=== PATIENT | female | born 1965 | race Hispanic/Latino ===

== ENCOUNTER 2022-10-04 14:21 | Observation (INO) | payer SELFPAY ==
[~2022-10-04] VITALS: Ht 152.4 cm; Wt 78.6 kg
[2022-10-04] MEDS ORDERED: NS 1,000 ML IV ONE (16:00)
[2022-10-04] MEDS ORDERED: methylPREDNISolone 125MG 2ML VIAL IV ONE (16:00)
[2022-10-04] MEDS ORDERED: IPRATROPIUM 0.5MG/ALBUTEROL 2.5MG INH SOL UD 3ML (DUONEB) NEB ONE (16:00)
[2022-10-04 16:41] LABS: BASO % 0.3 % (0.0-1.0); EOS % 0.1 % (0.0-3.0); HEMATOCRIT 35.1 % (36.0-47.0); HEMOGLOBIN 11.3 g/dl (12.0-15.5); LYMPH # 1.9 10^3/uL (1.5-5.0); LYMPH % 25.3 % (24.0-44.0); MEAN CORPUSCULAR HEMOGLOBIN 25.1 pg (27.0-33.0); MEAN CORPUSCULAR HGB CONC 32.2 g/dl (32.0-36.5); MONO # 0.9 10^3/uL (0.0-0.8); MONO % 11.8 % (2.0-8.0); NEUTROPHILS # 4.7 10^3/uL (1.5-8.5); NEUTROPHILS % 61.8 % (36.0-66.0); PLATELET COUNT, AUTOMATED 249 10^3/uL (150-450); WHITE BLOOD COUNT 7.5 10^3/uL (4.0-10.0)
[2022-10-04] MEDS ORDERED: POTASSIUM CHLORIDE 10MEQ SR TABLET PO ONE (16:45)
[2022-10-04] MEDS ORDERED: AZITHROMYCIN 250MG TABLET PO ONE (16:55)
[2022-10-04] MEDS ORDERED: cefTRIAXone SOD 1 GM in D5W MINI-BAG PLUS 50 ML IV ONE (16:55)
[2022-10-04 17:22] LABS: ALBUMIN 3.2 G/DL (3.2-5.2); BILIRUBIN,DIRECT 0.2 MG/DL (<0.4); BILIRUBIN,TOTAL 0.6 MG/DL (0.3-1.2); TOTAL PROTEIN 7.3 G/DL (5.7-8.2)
[2022-10-04] MEDS ORDERED: ALBUTEROL SULFATE 2.5 MG/0.5 ML INH NEB SOLN NEB ONE (18:55)
[2022-10-04] MEDS ORDERED: BENZONATATE 100MG CAPSULE PO ONE (18:55)
[2022-10-04 20:12] LABS: RSV AMPLIFICATION NEGATIVE (NEGATIVE)
[2022-10-04] MEDS ORDERED: NS 1,000 ML IV SCH (20:15)
[2022-10-04] MEDS ORDERED: IPRATROPIUM 0.5MG/ALBUTEROL 2.5MG INH SOL UD 3ML (DUONEB) NEB PRN (20:15)
[2022-10-04] MEDS ORDERED: guaiFENesin SYRUP 200MG 10ML UDC PO PRN (20:15)
[2022-10-04] MEDS ORDERED: ACETAMINOPHEN TAB 650MG DOSE (2X325MG) PO PRN (20:15)
[2022-10-04] MEDS ORDERED: HOME MED LIST COMPLETE! XX SCH (20:35)
[2022-10-04] MEDS: DOXYCYCLINE HYCLATE 100MG TABLET PO SCH (21:40)
[2022-10-05 06:05] LABS: HEMATOCRIT 32.5 % (36.0-47.0); HEMOGLOBIN 10.6 g/dl (12.0-15.5); MEAN CORPUSCULAR HEMOGLOBIN 25.5 pg (27.0-33.0); MEAN CORPUSCULAR HGB CONC 32.6 g/dl (32.0-36.5); MEAN CORPUSCULAR VOLUME 78.1 fl (80.0-96.0); PLATELET COUNT, AUTOMATED 217 10^3/uL (150-450); RED BLOOD COUNT 4.16 10^6/uL (4.00-5.40); WHITE BLOOD COUNT 4.5 10^3/uL (4.0-10.0)
[2022-10-05 06:31] LABS: MAGNESIUM LEVEL 2.3 MG/DL (1.8-2.4)
[2022-10-05 06:33] LABS: BLOOD UREA NITROGEN 19 MG/DL (9-23); CALCIUM LEVEL 8.3 MG/DL (8.5-10.1); CARBON DIOXIDE LEVEL 25 MMOL/L (20-31); CHLORIDE LEVEL 106 MMOL/L (98-107); CREATININE FOR GFR 0.69 MG/DL (0.55-1.30); GLOMERULAR FILTRATION RATE > 60.0 (>51); GLUCOSE, FASTING 252 MG/DL (60-100); POTASSIUM SERUM 4.1 MMOL/L (3.5-5.1); SODIUM LEVEL 140 MMOL/L (136-145)
[2022-10-05 08:00] VITALS: BP 129/62; O2SAT 100
[2022-10-05] MEDS: DOXYCYCLINE HYCLATE 100MG TABLET PO SCH (08:11)
[2022-10-05 08:58] VITALS: O2SAT 99
[2022-10-05] MEDS ORDERED: ENOXAPARIN 40MG/0.4ML SYRINGE (J1650 PER 10MG) SC SCH (09:00)
[2022-10-05 09:26] VITALS: O2SAT 99
[2022-10-05 09:46] LABS: TOTAL IRON BINDING CAPACITY 231 UG/DL (250-425)
[2022-10-05 09:49] LABS: FERRITIN 316.6 NG/ML (7.3-270.7)
[2022-10-05] MEDS: ALBUTEROL 90 MCG/ACT 8GM HFA INHALER INH SCH ×2 (10:00→13:59)
[2022-10-05 10:35] LABS: HEMOGLOBIN A1c 5.2 % (4.0-6.0)
[2022-10-05 10:38] VITALS: BP 132/70
[2022-10-05 10:42] VITALS: BP 131/70
[2022-10-05 10:43] LABS: IRON (FE) 11 UG/DL (50-170); PERCENT SATURATION 4.8 % (13.2-45.0)
[2022-10-05 10:45] VITALS: BP 132/71
[2022-10-05] MEDS ORDERED: ACET-897 PO ×2 (10:59→11:30)
[2022-10-05] MEDS ORDERED: AMOX875T2 PO ×2 (10:59→11:30)
[2022-10-05] MEDS ORDERED: VENTAER INH ×2 (10:59→11:30)
[2022-10-05] MEDS ORDERED: GUAI100S51 PO ×2 (10:59→11:30)
[2022-10-05] MEDS ORDERED: FERR324T21 PO ×2 (11:00→11:30)
[2022-10-05] MEDS ORDERED: cefTRIAXone SOD 1 GM in D5W MINI-BAG PLUS 50 ML IV SCH (17:00)
[2022-10-07 17:10] LABS: BODY FLUID CULTURE Not indicated. (.); LEGIONELLA ANTIGEN URINE Negative (Negative); ORGANISM ID Not indicated. (.); SPECIMEN SOURCE Urine (.); URINE STREP PNEUMONIAE ANTIGEN Negative (Negative)
== END 2022-10-05 13:30 | disposition home or self-care (01) ==
LOC: M ED 14:21 → M ED INP 14:22
PROVIDERS: ADMIT Family Medicine; ATTEND Family Medicine
DX: J09.X2 Influenza due to identified novel influenza A virus with other respiratory manifestations (principal); J15.8 Pneumonia due to other specified bacteria; J45.909 Unspecified asthma, uncomplicated; D50.9 Iron deficiency anemia, unspecified; E66.9 Obesity, unspecified; Z79.899 Other long term (current) drug therapy
CPT/HCPCS: 36415; 71046; 80047; 80048; 80076; 82728; 83036; 83550; 83605; 83735; 83880; 84145; 85025; 85027; 87040; 87428; 87449; 87631; 87899; 94640; 94760; 96365; 96372; 96375; 99284; J0696; J1650; J2930